=== PATIENT | female | born 1970 | race Hispanic/Latino ===

== ENCOUNTER 2020-07-14 16:38 | Inpatient (IN) | payer BC ==
[2020-07-14 17:01] LABS: #Basophils 0.1 thou/uL (0.0-0.2); #Eosinphils 0.4 thou/uL (0.0-0.7); #Lymphocytes 3.1 thou/uL (1.20-3.40); #Monocytes 0.6 thou/uL (0.11-0.59); #Neutrophils 5.6 thou/uL (1.40-6.50); %Basophils 1.1 % (0.0-1.0); %Eosinophils 3.8 % (0.0-10.0); %Lymphocytes 31.9 % (21.0-51.0); %Monocytes 5.9 % (0.0-10.0); %Neutrophils 57.4 % (42.0-75.0); Hemoglobin 14.7 g/dL (12.0-16.0); Mean Corpuscular HGB CONC 33.7 g/dL (32.0-36.0); Mean Corpuscular Hemoglobin 31.5 pg (27.0-31.0); Mean Corpuscular Volume 93.4 fL (78.0-98.0); Mean Platelet Volume 7.2 fL (7.4-10.4); Platelet Count 303 thou/uL (130-400); RBC Distribution Width 11.5 % (11.5-14.5); Red Blood Cell (RBC) Count 4.66 mill/uL (4.20-5.40); White Blood Cell (WBC) Count 9.8 thou/uL (4.8-10.8)
[2020-07-14] MEDS ORDERED: Ondansetron PF 4 MG/2 ML Vial ONE ×2 (17:02→18:44)
[2020-07-14] MEDS ORDERED: Lidocaine Viscous Sol 2% 15 ml UD Cup ONE (17:03)
[2020-07-14] MEDS ORDERED: Sucralfate 1 GM/10 ML UDCUP ONE (17:03)
[2020-07-14] MEDS ORDERED: Mag-Al 1200 mg/1200 mg/30 ML UDCUP ONE (17:03)
[2020-07-14 17:10] LABS: BHCG - Serum Negative (NEGATIVE); Pregs Control Background? CLEAR/WHITE (CLR/WHITE); Pregs Control Bar Appear? YES (CONTROL BAR)
[2020-07-14 17:23] LABS: ALT (SGPT) 44 U/L (8-55); AST (SGOT) 81 U/L (5-34); Albumin 4.2 g/dL (3.5-5.0); Alkaline Phosphatase 113 U/L (40-110); Anion Gap 12 mmol/L (10-20); BUN (Urea Nitrogen) 13 mg/dL (7.0-18.7); Bilirubin, Total 0.5 mg/dL (0.2-1.2); Calc. Creatinine Clearance 0 mL/min (70-130); Calcium 8.9 mg/dL (7.8-10.44); Carbon Dioxide 26 mmol/L (22-29); Chloride 103 mmol/L (98-107); Globulin 3.2 g/dL (2.4-3.5); Glucose 96 mg/dL (70-105); Lipase 38 U/L (8-78); Potassium 3.5 mmol/L (3.5-5.1); Protein, Total 7.4 g/dL (6.0-8.3); Sodium 137 mmol/L (136-145)
[2020-07-14] MEDS ORDERED: Pantoprazole 40 MG VIAL ONE (17:55)
--- NOTE | 2020-07-14 18:05 | RAD ---
SINGLE VIEW OF THE CHEST: Comparison: 05-04-16 History: Epigastic pain that radiates to the back. FINDINGS: Single view of the chest shows a normal sized cardiomediastinal silhouette. There is no evidence of c onsolidation, mass, or pleural effusion. The bones are unremarkable. IMPRESSION: No evidence of acute cardiopulmonary disease. POS: [facility]
--- NOTE | 2020-07-14 18:30 | ULT ---
GALLBLADDER ULTRASOUND: Comparison: None History: Right upper quadrant abdominal pain. Technique: Multiplanar grayscale and color doppler images were obtained in a right upper quadrant abd ominal ultrasound. FINDINGS: The liver is normal in echogenicity without focal lesions or intrahepatic ductal dilatation. There is a gallstone lodged in the gallbladder neck. There is no gallbladder wall thickening or pericholecyst ic fluid. The common bile duct is normal measuring 3 mm. The visualized portions of the pancreas are unremarkable. The right kidney is normal in echogenicity without hydronephrosis or calculus and measures 11.5 cm in length. IMPRESSION: Cholelithiasis. POS: [facility]
[2020-07-14] MEDS ORDERED: Morphine 4 MG/ML VIAL ONE (18:44)
[2020-07-14 22:41] VITALS: BMI 27.3
[2020-07-14] MEDS ORDERED: Morphine 4 MG/ML VIAL SLOW IVP PRN (23:02)
[2020-07-14] MEDS ORDERED: D5 1/2 NS w/20 mEq KCL 1,000 ML IV SCH (23:15)
[2020-07-14] MEDS ORDERED: Ondansetron ODT 4 MG TAB SL PRN (23:15)
[2020-07-14] MEDS ORDERED: Ondansetron PF 4 MG/2 ML Vial IVP PRN (23:15)
[2020-07-15] MEDS ORDERED: Iothalamate Meglumine 60% 50 ML VIAL FS ONE (08:30)
[2020-07-15] MEDS ORDERED: Bupivacaine 0.25% HCL 30 ML VIAL ONE (08:30)
[2020-07-15] MEDS ORDERED: XYLOCAINE 2%-EPI 1:100,000 20 ML VIAL ONE (08:30)
[2020-07-15] MEDS ORDERED: Fentanyl 100 MCG/2 ML VIAL ONE ×2 (08:33→10:05)
[2020-07-15] MEDS ORDERED: FLU VACC QS2020-21(6MOS UP)/PF 60 MCG/0.5 ML SYRINGE IM ONE ×2 (09:00→14:58)
[2020-07-15] MEDS ORDERED: Levofloxacin 500 mg/D5W 100 ml Premix Bag ONE (09:02)
[2020-07-15] MEDS ORDERED: traMADol HCl 50 MG TAB PO PRN ×2 (11:27→11:28)
[2020-07-15] MEDS ORDERED: Acetaminophen 500 MG TAB PO PRN ×2 (11:27)
[2020-07-15] MEDS ORDERED: Ibuprofen 600 MG TAB PO PRN ×2 (11:27→11:28)
--- NOTE | 2020-07-15 11:42 | RAD ---
Intraoperative cholangiogram: 07/15/2020 HISTORY: Intraoperative cholangiogram, cholelithiasis FINDINGS: Single radiograph provided during intraoperative cholangiogram demonstrates contrast media within the cystic duct and the common bile duct extending into the duodenum. No discrete filling defect is seen. Cholecystectomy clips are present. The intrahepatic biliary tree is not opacified on this exam. IMPRESSION: No filling defect seen within the partially opacified biliary tree.
--- NOTE | 2020-07-15 12:13 | HP ---
HISTORY OF PRESENT ILLNESS: Carol Solo is a 50-year-old female, who presents to the emergency room with a six-month history of biliary type pain, epigastric right upper quadrant pain, now becoming intractable. Seen in the emergency room, I do not have all of her labs available, but her liver function tests were normal. Bilirubin normal. Alkaline phosphatase slightly elevated. I do not have report of her common bile duct caliber. She did not have any symptoms of COVID. The patient has been admitted overnight and during this no day, I have been asked to see her by Dr. Miller to assume her care as I working today. The patient met the [email or web address] and labs are down. We were able to ascertain with after multiple phone calls that she has a negative test. ALLERGIES: NONE. HABITS: Tobacco cessation two years ago. Alcohol, socially. MEDICATIONS: None routinely. PAST SURGICAL HISTORY: Noncontributory. PAST MEDICAL HISTORY: Noncontributory. REVIEW OF SYSTEMS: [employer] noncontributory. FAMILY HISTORY: Noncontributory. SOCIAL HISTORY: The patient is , has two children. She is a full-time housewife. PHYSICAL EXAMINATION: VITAL SIGNS: Blood pressure 120/68, respiratory rate 16, heart rate 68. HEAD, EARS, EYES, NOSE AND THROAT: Unremarkable. Sclerae nonicteric. SKIN: Nonjaundiced. LUNGS: Clear to auscultation. CARDIAC: Regular rate and rhythm without murmur or gallop. ABDOMEN: Soft plus bowel sounds, slight tenderness in the epigastrium and right upper quadrant. EXTREMITIES: Ankles without edema. ASSESSMENT AND PLAN: Symptomatic cholelithiasis. Recommend laparoscopic video cholecystectomy and would plan cholangiograms, although this is a soft call as to whether this is necessary or not. There is no report of biliary dilatation. I cannot pull up the report nor the images to view them. Her bilirubin is normal. We will plan laparoscopic cholecystectomy, possible cholangiogram. She understands risks and benefits and consents. Job ID: [id number]
--- NOTE | 2020-07-15 12:13 | OP ---
DATE OF PROCEDURE: 07/15/2020 PREOPERATIVE DIAGNOSES: 1. Chronic and acute cholecystitis. 2. Cholelithiasis. POSTOPERATIVE DIAGNOSES: 1. Chronic and acute cholecystitis. 2. Cholelithiasis. PROCEDURE PERFORMED: Laparoscopic video cholecystectomy with negative intraoperative cholangiogram. ANESTHESIA: General, local with 0.5% Marcaine 30 mL, mixed with 1% Xylocaine with epinephrine 20 mL. DESCRIPTION OF PROCEDURE: The patient was taken to the operating room where under general anesthesia, abdomen was prepared with ChloraPrep and draped in routine fashion. Local anesthetic was infiltrated in the skin and subcutaneous tissue about all port sites. Infraumbilical incision made, pneumoperitoneum to 15 mmHg was obtained with a Veress needle, replacing with a 5 port, video laparoscope was inserted. Right subxiphoid incision was made and an 11 port placed, right subcostal incision made at midclavicular entrance line and 5 ports placed. Liver appeared to be normal grossly. Abdominal cavity was normal. Fundus of the gallbladder grasped and reflected cephalad. Infundibulum of the gallbladder grasped and reflected laterally. Cystic artery and duct dissected free. Critical view obtained. Cystic artery doubly clipped proximally. Cystic duct singly clipped on the gallbladder side. Opening made in the cystic duct. Cholangiocatheter inserted. Cholangiogram was obtained using fluoroscopy, revealing free flow of contrast into a normal caliber common hepatic and common bile duct, left and right hepatic ducts and free flow into the duodenum without filling defects. Thus, the cholangiocatheter was removed. Cystic duct stump doubly clipped. Cystic artery and duct divided. Gallbladder dissected free from liver bed, obtaining good hemostasis prior to division of final peritoneal attachments. Gallbladder and multiple stones removed, submitted to Pathology. Good hemostasis ensured with cautery. Irrigant and pneumoperitoneum evacuated. All instruments were removed. All skin incisions were approximated with interrupted subdermal 4-0 Monocryl and [place] glue applied. The patient tolerated the procedure well. Job ID: [id number]
[2020-07-15] MEDS ORDERED: Acetaminophen 500 MG TAB ONE (12:55)
[2020-07-15] MEDS ORDERED: traMADol HCl 50 MG TAB ONE (12:55)
[2020-07-15 13:40] LABS: SARS-CoV-2 PCR by NAA Not Detected (NotDetected)
[2020-07-15] MEDS ORDERED: Glycopyrrolate 0.2 MG/ML 5 ML SYRINGE ONE (14:48)
[2020-07-15] MEDS ORDERED: Rocuronium Bromide 10 MG/ML (10ML VIAL) ONE (14:48)
[2020-07-15] MEDS ORDERED: Ketorolac Tromethamine 30 MG/ML VIAL ONE (14:48)
[2020-07-15] MEDS ORDERED: Lidocaine 1% PF 5 ML VIAL ONE (14:48)
[2020-07-15] MEDS ORDERED: Ondansetron PF 4 MG/2 ML Vial ONE (14:48)
[2020-07-15] MEDS ORDERED: Dexamethasone 20 MG/5 ML VIAL ONE (14:48)
[2020-07-15] MEDS ORDERED: PROPOFOL 200 MG/20 ML VIAL ONE (14:48)
[2020-07-15 14:52] VITALS: TEMP 97.8
[2020-07-15] MEDS ORDERED: Ibuprofen 600 MG TAB ONE (15:10)
[2020-07-15] MEDS ORDERED: Ondansetron ODT 4 MG TAB ONE (15:30)
[2020-07-15 16:28] VITALS: BP 106/68
--- NOTE | 2020-07-16 09:16 | DIS ---
DATE OF ADMISSION: 07/14/2020 DATE OF DISCHARGE: 07/15/2020 DISCHARGE DIAGNOSES: Chronic cholecystitis and cholelithiasis. DIAGNOSTIC STUDIES: Ultrasound of the gallbladder in the ER. Negative COVID test. Negative test. Alkaline phosphatase slightly elevated. PROCEDURE: Laparoscopic video cholecystectomy with negative cholangiogram. DISCHARGE MEDICATIONS: 1. Tylenol. 2. Advil [id number] as able. 3. Tramadol if necessary. HISTORY: A 50-year-old female with 6 months of biliary symptoms, presented to the emergency room. Ultrasound documented gallstones. Bile duct caliber unknown due to lack of ability of [employer]. Alkaline phosphatase slightly elevated. Bilirubin report is normal. Hemoglobin normal. The patient received intravenous antibiotics overnight and was taken to the operating room for laparoscopic cholecystectomy, after which she was discharged home with Tylenol 1000 mg p.o. q.i.d. p.r.n. pain, Motrin 600 mg p.o. q.i.d. p.r.n. pain, and tramadol 50 mg p.o. q.4 hours p.r.n. pain as necessary. Follow up in my office in 2 to 3 weeks. Diet and activity as tolerated. No lifting restrictions. Job ID: [id number]
--- NOTE | 2020-07-20 17:31 | EKG ---
Test Reason : Blood Pressure : / mmHG Vent. Rate : 081 BPM Atrial Rate : 081 BPM P-R Int : 140 ms QRS Dur : 086 ms QT Int : 382 ms P-R-T Axes : 034 010 033 degrees QTc Int : 443 ms Normal sinus rhythm Normal ECG Confirmed by JOEL DUFFY, JONATHAN ([id number]), editor newspaper DAQUAN CARRILLO ([id number]) on 07/20/2020 5:31:29 PM Referred By: Confirmed By:JONATHAN MALDONADO MD
== END 2020-07-15 16:00 | disposition home or self-care (01) | DRG 419 ==
LOC: ERS 16:38 → SURG A 19:49
PROVIDERS: ADMIT Surgery; ATTEND Surgery
PROC: 0FT44ZZ Resection of Gallbladder, Percutaneous Endoscopic Approach (ICD-10-PCS; principal; 2020-07-14)
PROC: BF101ZZ Fluoroscopy of Bile Ducts using Low Osmolar Contrast (ICD-10-PCS; 2020-07-14)
DX: K80.12 Calculus of gallbladder with acute and chronic cholecystitis without obstruction (principal); Z87.891 Personal history of nicotine dependence; Z20.822 Contact with and (suspected) exposure to COVID-19
CPT/HCPCS: 47532; 71045; 76705; 80053; 83690; 84484; 84703; 85025; 87635; 88304; 90471; 90662; 93005; 96374; 96375; 96376; C9113; G0008; J1100; J1610; J1885; J1956; J2270; J2405; J2704; J3010; J3480; S0020; U0003; U0005

== ENCOUNTER 2022-05-16 21:39 | Emergency (ER) | payer BC ==
[2022-05-16] MEDS ORDERED: Ketorolac Tromethamine 30 MG/ML VIAL ONE (23:04)
== END 2022-05-16 23:24 | disposition home or self-care (01) ==
LOC: ERS 21:39
DX: S82.431A Displaced oblique fracture of shaft of right fibula, initial encounter for closed fracture (principal); W22.8XXA Striking against or struck by other objects, initial encounter; Z87.891 Personal history of nicotine dependence
CPT/HCPCS: 96372; J1885